=== PATIENT | female | born 1975 | race Caucasian/White ===

== ENCOUNTER → 2017-04-28 | Outpatient (CLI) | payer OTHER | LOC: FIMAGING 09:09 | PROVIDERS: ATTEND Obstetrics & Gynecology | DX: Z12.31 Encounter for screening mammogram for malignant neoplasm of breast (principal) | CPT/HCPCS: G0202 ==

== ENCOUNTER 2017-05-27 10:43 | Emergency (ER) | payer OTHER ==
[2017-05-27 10:48] VITALS: TEMP 98.4
--- NOTE | 2017-05-27 11:55 | CPEKG ---
Heart Rate: 54 RR Interval: 1111 P-R Interval: 184 QRSD Interval: 78 QT Interval: 436 QTC Interval: 414 P [place]: 12 QRS [place]: 23 T Wave [place]: -11 EKG Severity - BORDERLINE ECG - EKG Impression: SINUS RHYTHM EKG Impression: BORDERLINE T ABNORMALITIES, INFERIOR LEADS Electronically Signed By: Yoni Noguera 27-May-2017 16:56:16
[2017-05-27 11:56] LABS: % IMMATURE GRANULYOCYTES 0.3 % (0.0-1.1); ABSOLUTE IMMATURE GRANULOCYTES 0.02 10^3/uL (0.00-0.10); ADD DIFF? NO; ADD MORPH? NO; ADD SCAN? NO; ATYPICAL LYMPHOCYTE FLAG 0 (0-99); FRAGMENT RBC FLAG 0 (0-99); LEFT SHIFT FLG 0 (0-99); LIPEMIA HEMOLYSIS FLAG 90 (0-99); MEAN CELL HEMOGLOBIN 31.5 pg (27.9-34.1); MEAN CELL HEMOGLOBIN CONCENTR. 34.1 g/dL (32.4-36.7); MEAN CELL VOLUME 92.3 fL (81.5-99.8); MEAN PLATELET VOLUME 8.7 fL (8.7-11.7); PLATELET CLUMPS FLAG 0 (0-99); PLATELET COUNT 364 10^3/uL (150-400); RED BLOOD CELL COUNT 4.44 10^6/uL (4.18-5.33); RED CELL DISTRIBUTION WIDTH 12.7 % (11.5-15.2)
--- NOTE | 2017-05-27 12:03 | EDPHY ---
H & P Stated Complaint: sob x 2 weeeks - Personal History LMP (Females 10-55): 22-28 Days Ago Current Tetanus/Diphtheria Vaccine: Yes - Medical/Surgical History Hx Asthma: No Hx Chronic Respiratory Disease: No Hx Diabetes: No Hx Cardiac Disease: No Hx Renal Disease: No Hx Cirrhosis: No Hx Alcoholism: No Hx HIV/AIDS: No Hx Splenectomy or Spleen Trauma: No Other PMH: gestational diabetes- resolved - Social History Smoking Status: Never smoked Time Seen by Provider: 05/27/17 11:38 HPI/ROS: CHIEF COMPLAINT: Dyspnea x1.5 weeks HISTORY OF PRESENT ILLNESS: 41-year-old female arrives via private vehicle complaining 1/2 weeks of dyspnea, right-sided chest pain. The pain is nonexertional. She was on the treadmill yesterday and did not feel pain but notes that she had difficulty keeping up due to or dyspnea. No history of thromboembolic disorder, no history of illicit drug use, intermittent cigarette use. No syncope or near syncope. No diaphoresis. No nausea or vomiting. REVIEW OF SYSTEMS: A ten point review of systems was performed and is negative with the exception of the items mentioned in the HPI PAST MEDICAL & SURGICAL HISTORY: No pertinent medical or surgical history . No family history of thromboembolic disorder SOCIAL HISTORY: intermittent tobacco use smoking.. No illicit drug use. No cocaine use. FAMILY HISTORY:no family history of premature coronary disease PHYSICAL EXAM (Prior to examination, patient consented to physical exam, hands were washed and my usual and customary physical exam procedures followed) 1) GENERAL: Well-developed, well-nourished, alert and oriented. Appears to be in no acute distress. Speaking full sentences. No signs of respiratory distress 2) HEAD: Normocephalic, atraumatic 3) HEENT: Pupils equal, round, reactive to light bilaterally. Sclera anicteric. Nasopharynx, oropharynx, clear, no lesions. 4) NECK: Full range of motion, no meningeal signs. 5) LUNGS: Clear auscultation bilaterally, no wheezes, no rhonchi, no retractions. 6) HEART: Regular rate and rhythm, no murmur, no heave, no gallop. 7) ABDOMEN: No guarding, no rebound, no focal tenderness, negative McBurney's, negative Serrato's, negative Rovsing's, negative peritoneal sign, 8) MUSCULOSKELETAL: Moving all extremities, no focal areas of tenderness, no obvious trauma. No peripheral edema or discoloration. 9) BACK: No CVA tenderness, no midline vertebral tenderness, no fluctuance, no step-off, no obvious trauma, no visual or palpable abnormality. 10) SKIN: No rash, no petechiae. 11) Psychiatric: Patient is oriented X 3, there is no agitation. DIFFERENTIAL DIAGNOSIS: in no particular include but limited to pulmonary embolus, pulmonary infectious etiology, reactive airway disease (Konrad Gray) Constitutional: Initial Vital Signs Temperature (C) 36.9 C 05/27/17 10:46 Heart Rate 67 05/27/17 10:46 Respiratory Rate 18 05/27/17 10:46 Blood Pressure 121/79 H 05/27/17 10:46 O2 Sat (%) 98 05/27/17 10:46 O2 Delivery Mode Room Air Allergies/Adverse Reactions: No Known Allergies Allergy (Verified 05/27/17 10:45) Home Medications: Medication Instructions Recorded Microgestin 05/27/17 Medical Decision Making - Diagnostics EKG Interpretation: EKG: Complete interpretation has been separately recorded in the [employer] archive. Summary impression: Sinus rhythm, rate 54, nonspecific T-wave changes noted in III (Yoni Noguera) ED Course/Re-evaluation: The patient was re-evaluated with serial examinations. I think that in the presence of negative D-dimer this adequately excludes pulmonary embolus in this patient whom I have a low to moderate risk stratification. Think that PA is less than likely in this patient the presence of normal troponin symptoms which have been occurring for a few days and absence of cocaine or family history significant for premature coronary artery disease. Patient feels comfortable being discharged. Recommend she follow up with primary care provider. Discussed case with primary supervising physician Dr. Noguera in the ER. (Konrad Gray) Other Provider: PHYSICIAN DOCUMENTATION: The patient was evaluated and managed by the Physician Online Producer. My co- signature indicates that I have reviewed this chart and I agree with the findings and plan of care as documented. I am the secondary supervising physician. (Yoni Noguera) - Data Points Laboratory Results: Laboratory Results 05/27/17 11:48 05/27/17 11:48 Departure - Departure Disposition: Home, Routine, Self-Care Clinical Impression: Dyspnea Condition: Good Instructions: Dyspnea (ED) Additional Instructions: Return to the emergency department if you developed worsening shortness of breath, if you develop chest pain, or any other symptoms that concern you. Referrals: Demetrius Soler MD [Primary Care Provider] - 1-2 days without fail
[2017-05-27 12:09] LABS: ANION GAP 14 mEq/L (8-16); CALCIUM 9.8 mg/dL (8.5-10.4); CARBON DIOXIDE 22 mEq/l (22-31); CHLORIDE 103 mEq/L (97-110); CREATININE 0.8 mg/dL (0.6-1.0); GLOMERULAR FILTRATION RATE > 60; GLUCOSE 85 mg/dL (70-100); POTASSIUM 4.2 mEq/L (3.5-5.2); SODIUM 139 mEq/L (134-144)
[2017-05-27 12:32] LABS: TROPONIN I < 0.012 ng/mL (0-0.034)
[2017-05-27 13:24] VITALS: BP 122/79; PULSE 66; RESP 16; O2SAT 96
== END 2017-05-27 13:23 | disposition home or self-care (01) ==
DX: R06.00 Dyspnea, unspecified (principal)

== ENCOUNTER → 2018-06-28 | Outpatient (CLI) | payer OTHER | LOC: FIMAGING 09:02 | PROVIDERS: ATTEND Obstetrics & Gynecology | DX: Z12.31 Encounter for screening mammogram for malignant neoplasm of breast (principal) ==

== ENCOUNTER → 2018-09-22 | Outpatient (CLI) | payer OTHER ==
[~2018-09-22] MED LIST: IOPAMIDOL (ISOVUE-300) 100 ML BTL ONE
== END ==
LOC: FIMAGING 11:58 → EDSTATUS 12:02
PROVIDERS: ATTEND Internal Medicine
DX: R10.32 Left lower quadrant pain (principal); K42.9 Umbilical hernia without obstruction or gangrene; K76.0 Fatty (change of) liver, not elsewhere classified; M51.27 Other intervertebral disc displacement, lumbosacral region
CPT/HCPCS: Q9967

== ENCOUNTER → 2018-11-03 | Outpatient (CLI) | payer OTHER | LOC: FIMAGING 09:05 | PROVIDERS: ATTEND Obstetrics & Gynecology | DX: R10.30 Lower abdominal pain, unspecified (principal) ==